=== PATIENT | male | born 1985 | race Two or more races ===

== ENCOUNTER 2024-11-10 19:59 | Emergency (ER) | payer SELFPAY ==
[2024-11-10 20:10] VITALS: BP 134/86; PULSE 76; RESP 17; TEMP 37.1; O2SAT 99
--- NOTE | 2024-11-10 20:26 | PD.EDEYE ---
ED Eye Problem RME/HPI General Chief complaint: Eye Problems Stated complaint: LEFT EYE REDNESS Time Seen by Provider: 11/10/24 20:08 Arrival date/time: 11/10/24 19:59 RME / HPI RME / HPI Narrative: This section includes all my notes and documentations, including HPI, PE, and ED course. Leo Patino MD HPI: 38yo male with no significant past medical history presents to the ED for a chief complaint of left eye pain and redness x 3 days. Patient states he works in the [employer], reporting he was picking off of branches and was poked in the eye. He has had left eye pain and redness for the last 3 days, so he came in for evaluation. He denies any fever, chills or any other associated symptoms. No other complaints reported. ROS: All negative except as documented in HPI. Physical Exam: General: Alert and oriented. Appears uncomfortable. Eyes: Left conjunctiva injected. PERRL. EOMI. No FB noted under magnification, lower and upper lids everted for exam. Used tetracaine for local anesthesia. Used fluorescein strip for dye. Under Wood's light, corneal abrasion with dye reuptake noted at the center. ENT: No nasal congestion. Neck: Supple. Heart: RRR. Lungs: No respiratory distress. Good air movement. No rhonchi, wheezing, rales. Abdomen: Soft and nontender. Legs: No clubbing, cyanosis, edema. Skin: Warm and dry. Neuro: Alert and oriented X 3. At this point, diagnoses include corneal abrasion. Treatment here included Ibuprofen, Tetracain, and Fluorescein. Recommended conservative treatment. Based on my best medical judgment, made decision no further evaluation or treatment indicated at this time. Patient understands and agrees to the discharge instructions customized and printed, see below. Discharge Instructions from Dr. Patino: ?You have a scratch on the protective layer of your eye. ?With rest and proper treatment, you will get better. ?Don?t rub your eye, in general avoid touching your eyes with your hands. ?Use the eye drops as prescribed to help healing and avoid infection. ?Take Ibuprofen 800 mg every 8 hours today and tomorrow to decrease inflammation. Then as needed. ?Try to rest your eye for 3 days as much as possible, less exposure to sun, sunglasses as needed, less TV/Computer, eye patch as needed, less reading, cold compress as needed, etc. ?If you are not better on 11/15/2024, see an eye doctor of your choice. You do not want to take chances with your vision and eyes. Local manager cosmetic is adequate. ?Seek immediate medical care with worsening, fever, or with any concerns. Leo Patino MD Related Data Previous Rx's ?Medication ?Instructions ?Recorded ibuprofen 800 mg tablet 800 mg PO Q8H PRN pain #30 tabs 11/10/24 [id number] 3.5 1 drp ophthalmic (eye) QID 5 days 11/10/24 mg/mL-10,000 unit/mL-0.1% eye #5 mL drops (Maxitrol) Allergies Allergy/AdvReac Type Severity Reaction Status Date / Time No Known Allergies Allergy Verified 11/10/24 20:11 Review of Systems Review of Systems Systems Reviewed: All systems reviewed, normal except as documented Past Medical History Social History SMOKING STATUS: Never smoker ED Exam Narrative Physical exam: As noted in HPI. Course Quality Measures none Orders Category Date Time Status Gamez Lamp to Bedside X1 Care 11/10/24 20:20 Completed Fluorescein Sodium [[id number]] Med 11/10/24 20:20 Discontinued 1 mg LEFT EYE X1 ONE Ibuprofen Tab [Motrin Tab] Med 11/10/24 20:20 Discontinued 800 mg PO X1 ONE TETRACAINE Op Zoila 0.5% [Pontocaine Op Zoila 0.5%] Med 11/10/24 20:20 Discontinued 1 drop LEFT EYE X1 ONE Vital Signs Vital signs: Vital Signs Temperature 98.8 F 11/10/24 20:10 Pulse Rate 76 11/10/24 20:10 Respiratory Rate 17 11/10/24 20:10 Blood Pressure 134/86 H 11/10/24 20:10 Pulse Oximetry (%) 99 11/10/24 20:10 Oxygen Delivery Method Room Air 11/10/24 20:10 Eye MDM Narrative MDM Narrative:: Scribe Attestation: 11/10/24 Lynda Hsu am scribing for and in the presence of Dr. Patino. Patient data External records reviewed:: [facility] previous records (Per chart review, patient has no previous ED visits or admissions to this facility.) Clinical information provided by:: patient Social determinants that could affect healthcare access:: none Patient has the following chronic illnesses:: none How is presenting disease/condition affected by chronic disease/condition?: no chronic disease Evaluation data The following diagnostics were reviewed and interpreted by me:: other (specify) (none) Lab and/or radiology exams considered but not ordered:: none Interpretation Summary: none Medications / Prescriptions Medications or Prescriptions considered but not ordered:: none Medication administrations:: Medication Administration History Discontinued Medications Fluorescein Sodium (Fluorescein Sod 1 Mg Strp) 1 mg LEFT EYE X1 ONE Stop: 11/10/24 20:21 Last Admin: 11/10/24 20:28 Dose: 1 mg Documented By: MICHELLE Ibuprofen (Ibuprofen Tab 400 Mg Tablet) 800 mg PO X1 ONE Stop: 11/10/24 20:21 Last Admin: 11/10/24 20:29 Dose: 800 mg Documented By: MICHELLE Tetracaine HCl (Tetracaine Pf Op Zoila 0.5% 4 Ml Drpette) 1 drop LEFT EYE X1 ONE Stop: 11/10/24 20:21 Last Admin: 11/10/24 20:28 Dose: 1 drop Documented By: MICHELLE Ibuprofen, Tetracain, Fluorescein Consultations Consultation(s) initiated? (list below): No Diagnosis Eye Problem Differential Diagnosis: corneal abrasion and conjunctivitis Most likely diagnosis given after review of the tests above:: corneal abrasion Admission Indicated Admission indicated?: not indicated Explain why admission is indicated or not indicated:: No criteria for admission. Admission Request Was there a request for admission?: No Disposition Plan Disposition Plan: Discharge Discharge Attestation Discharge Attestation: The patient and all family members were given an opportunity to ask questions and understood the discharge instructions. Discharge instructions specifically effects, indications for sooner follow up or return to the emergency department, and the expected course of current diagnosis. Patient condition: Stable Discharge Plan Plan Patient Disposition: HOME (Self Care) Prescriptions/Referrals Prescriptions/Med Rec: New ibuprofen 800 mg tablet 800 mg PO Q8H PRN (Reason: pain) Qty: 30 0RF neomycin-polymyxin B-dexameth [Maxitrol] 3.5mg/mL-10,000 unit/mL-0.1 % drops,suspension 1 drp ophthalmic (eye) QID 5 Days Qty: 5 0RF Problem List Clinical Impression: Corneal abrasion Patient/Caregiver Discharge Instructions Discharge Activity: activity as tolerated Education Materials: ED Corneal Abrasion Additional Instructions: Discharge Instructions from Dr. Patino: ?You have a scratch on the protective layer of your eye. ?With rest and proper treatment, you will get better. ?Don?t rub your eye, in general avoid touching your eyes with your hands. ?Use the eye drops as prescribed to help healing and avoid infection. ?Take Ibuprofen 800 mg every 8 hours today and tomorrow to decrease inflammation.? Then as needed.?? ?Try to rest your eye for 3 days as much as possible, less exposure to sun, sunglasses as needed, less TV/Computer, eye patch as needed, less reading, cold compress as needed, etc. ?If you are not better on 11/15/2024, see an eye doctor of your choice. You do not want to take chances with your vision and eyes. Local manager cosmetic is adequate.? ?Seek immediate medical care with worsening, fever, or with any concerns. Instrucciones de erin del Dr. Patino: ?Tiene un rasgu?o en la capa protectora del radha. ?Con descanso y el tratamiento adecuado, mejorar?. ?No se frote el radha, en general, evite tocarse los ojos con las rikki. ?Use las gotas para los ojos seg?n lo prescrito para ayudar a la curaci?n y evitar infecciones. ?[place] ibuprofeno 800 mg cada 8 horas hoy y ma?rachel para disminuir la inflamaci?n. Luego, seg?n sea necesario. ?Intente descansar el radha alexander 3 d?as tanto anita sea posible, menos exposici?n al ozila, gafas de zoila seg?n sea necesario, menos televisi?n/computadora, parche en el radha seg?n sea necesario, menos lectura, compresas fr?as seg?n sea necesario, etc. ?Si no mejora el 15/11/2024, consulte a un oculista de mederos elecci?n. No querr? correr riesgos con mederos visi?n y olivia ojos. Un optometrista local es adecuado. ?Busque atenci?n m?dica inmediata si empeora, tiene fiebre o tiene alguna inquietud. Print Language: Greenlandic Stand Alone Forms: Anita Award Info., Patient Portal Info Letter
[2024-11-10] MEDS: TETRACAINE PF OP SOL 0.5% 4 ML DRPETTE 1 DROP LEFT EYE (20:28)
[2024-11-10] MEDS: FLUORESCEIN SOD 1 MG STRP LEFT EYE (20:28)
[2024-11-10] MEDS: IBUPROFEN TAB 400 MG TABLET 800 MG PO (20:29)
== END 2024-11-10 21:08 | disposition home or self-care (01) ==
LOC: SERX 20:55
PROVIDERS: Emergency Provider Emergency Medicine; PCP Family Medicine
DX: S05.02XA Injury of conjunctiva and corneal abrasion without foreign body, left eye, initial encounter (principal); W22.8XXA Striking against or struck by other objects, initial encounter; Y99.0 Civilian activity done for income or pay
CPT/HCPCS: 99283; A9270